=== PATIENT | female | born 1975 | race Caucasian/White ===

== ENCOUNTER → 2024-04-15 17:00 | Outpatient (REF) | payer BC, SELFPAY | LOC: WDC 17:00 | PROVIDERS: ATTENDING PHYSICIAN Obstetrics & Gynecology; FAMILY PHYSICIAN Family Medicine | DX: Z12.31 Encounter for screening mammogram for malignant neoplasm of breast (principal) | CPT/HCPCS: 77063; 77067 ==

== ENCOUNTER 2024-05-02 20:16 | Emergency (ER) | payer BC, SELFPAY ==
[2024-05-02 20:21] VITALS: BP 161/92
--- NOTE | 2024-05-02 20:41 | ED.SKININJ ---
HPI-Injury
General
Chief Complaint: Skin Surface Trauma
Source: patient
Exam Limitations: none
Time Seen by Provider: 05/02/24 20:29
Nursing documentation reviewed up to this point in time: agreed with
History of Present Illness-Injury
Initial Injury comments:
48-year-old female within the past 2 hours with lowering the back [place] of her car and she pulled it down onto the right side of her scalp causing a laceration. There was no loss of consciousness. She denies headache, nausea, change in vision or
neck pain. She is unsure of her last tetanus immunization.
Past History
Past History
ED Past Medical History: None
ED Past Surgical History:
Social History
Tobacco: Non-smoker
Alcohol: Occasional
Personal:
Living: with family
Review of Systems
Review of Systems
Allergies reviewed?: Yes
All Other Systems: ROS reviewed and negative except as documented in HPI and ROS
ABD/GI: Denies nausea
Musculoskeletal: Denies neck pain
Skin: Reports other (Scalp laceration)
Neurological: Reports no symptoms
Phy Exam
Physical Exam
Physical Exam:
GENERAL: No acute distress. A&Ox3.
CONSTITUTIONAL: Afebrile.
EYES: PERRL, conjunctivae normal
ENMT: moist mucus membranes, Pharynx nl
RESPIRATORY: Regular respirations, nonlabored, lungs clear.
CARDIOVASCULAR: Regular rate and rhythm, no murmurs, no rubs.
MUSCULOSKELETAL: C-spine nontender. Moves with ease. Well perfused.
SKIN: Warm, dry, pink. Scalp laceration
PSYCH: Normal mood and affect. Well kept, interactive and appropriate
NEUROLOGIC: Awake, alert and oriented. No focal neurological deficits
Course
Orders/Labs/Results
Orders:
Orders
05/02/24 20:41
Acetaminophen [Tylenol] 1,000 mg PO NOW STA
Tetanus/Diphth/Acelpertussis [Adacel] 0.5 ml IM .ONCE ONE
Vital Signs
Initial and Last Documented VS:
Initial Vital Signs
Temp Pulse Resp BP Pulse Ox
98.5 F 72 18 161/92 99
05/02/24 20:21 05/02/24 20:21 05/02/24 20:21 05/02/24 20:21 05/02/24 20:21
Last Documented Vital Signs
Temp Pulse Resp BP Pulse Ox
98.5 F 72 18 148/78 99
05/02/24 20:21 05/02/24 20:21 05/02/24 20:21 05/02/24 20:53 05/02/24 20:21
Procedures
Laceration Closure
Right Upper Scalp:
Status of Wound: clean
Size of Wound in cm: 2
Description of Wound Edges: sharp
Preparation: cleaned with saline
Revision/Debridement: routine- no revision
Type of Closure: Dermabond-skin glue
MDM/Problems Addressed
Differential Diagnosis Includes:
Scalp laceration, concussion
MDM/Problems Addressed:
48-year-old female within the past 2 hours with lowering the back [place] of her car and she pulled it down onto the right side of her scalp causing a laceration. There was no loss of consciousness. She denies headache, nausea, change in vision or
neck pain. She is unsure of her last tetanus immunization.
Neuro exam is normal, no sign of concussion
Tdap updated
Wound glued with good approximation of wound edges
*Critical Care Note
Total Time (30-74mins, 75-104mins- exclusive of procedures): Not Applicable
ED Attending Note
-
Portions of this chart may have been created with voice recognition software.� Occasional wrong word or��sound alike� substitutions may have occurred due to the inherent limitations of voice recognition software.
Discharge Plan
Departure
Patient Disposition: Home (Routine Discharge)
Date of Disposition: 05/02/24
Time of Disposition: 20:45
Patient with high blood pressure during this ER visit?: No
Condition: Good
Discharge Problem:
Laceration of scalp
Instructions: Laceration Repair With Glue (DC), Minor Head Injury, Adult ED
Prescriptions:
No Action
sertraline 20 MG/ML concentrate
20 mg PO
prenat.vits,annie,xeo-mybo-reife [ Vitamin] 1 TAB tablet
1 tab PO
Activity Restrictions/Additional Instructions:
As we discussed, you may briefly wet the area in the shower, just do not rub it or apply any ointments.
It takes 7 to 10 days for this area to heal
the glue should slough off within the next 2 weeks.
Interventions
Interventions:
*Risk Screen - Suicide Last Done: 05/02/24 20:21
*General Assessment Last Done: 05/02/24 20:21
*Neglect/Abuse Screening Last Done: 05/02/24 20:21
ED- Fall Risk Assessment Last Done: 05/02/24 20:21
*Nursing Disposition Last Done: 05/02/24 20:53
ED-Skin Assessment Last Done: 05/02/24 20:34
Discharge Date and Time
Discharge Date/Time: 05/02/24 21:27
Print Language: URDU
[2024-05-02] MEDS: TYLENOL 1000 MG PO (20:43)
[2024-05-02] MEDS: ADACEL 0.5 ML IM (20:44)
[2024-05-02 20:53] VITALS: BP 148/78
== END 2024-05-02 21:27 | disposition home or self-care (01) ==
LOC: EMR 20:16
PROVIDERS: EMERGENCY PHYSICIAN Emergency Medicine; FAMILY PHYSICIAN Family Medicine
DX: S01.01XA Laceration without foreign body of scalp, initial encounter (principal); W22.8XXA Striking against or struck by other objects, initial encounter; Z23 Encounter for immunization
CPT/HCPCS: 99282; 12001; 90471; 90715

== ENCOUNTER → 2025-02-20 07:33 | Outpatient (REF) | payer BC, SELFPAY | LOC: HWRAD 07:33 | PROVIDERS: ATTENDING PHYSICIAN Nurse Practitioner Family | DX: R10.10 Upper abdominal pain, unspecified (principal) | CPT/HCPCS: 76700 ==

== ENCOUNTER 2025-04-14 06:34 | Day surgery (SDC) | payer BC, SELFPAY ==
[2025-04-03 08:12] LABS: ALT (SGPT) 36 U/L (0-35); AST (SGOT) 27 U/L (14-36); Albumin 3.8 g/dl (3.5-5.0); Alkaline Phosphatase 92 U/L (38-126); Blood Urea Nitrogen 13 mg/dl (7-17); Calcium 9.2 mg/dl (8.4-10.2); Carbon Dioxide 31 mmol/L (22-30); Chloride 104 mmol/L (98-107); Glucose 88 mg/dl (70-99); Potassium 3.8 mmol/L (3.5-5.1); Sodium 140 mmol/L (135-145); Total Protein 6.3 g/dl (6.3-8.2); eGFR > 60.00
[2025-04-14] VITALS (7 sets, daily range): BP systolic 105–178; BP diastolic 78–94; BMI 25.9
--- NOTE | 2025-04-14 09:54 | HP.FOC2 ---
Focused History & Physical
Chief Complaint
HPI:
Chief Complaint: Biliary colic
HPI / Indication for Planned Procedure: This is a 49-year-old female who presents with biliary colic. Will plan for laparoscopic cholecystectomy with cholangiogram.
Relevant Past Medical History: Negative
Relevant Social History: Negative
Relevant Family History: Negative
Relevant Past Surgical History: Positive for (C-sections)
Review of Systems
Review of Pertinent Systems: All Systems Negative
Medication
See Medication form for detailed medications: Yes
Medication List (including Herbals & OTC):
duloxetine 60 mg capsule,delayed release 60 mg PO DAILY 04/07/25
losartan 100 mg tablet 100 mg PO DAILY 04/07/25
Medications Reviewed: Yes
Allergies and Reactions
Patient has Allergies: No
Noted Allergies and Reactions:
Allergy/AdvReac Type Severity Reaction Status Date / Time
No Known Allergies Allergy Verified 04/14/25 09:40
Pertinent Physical Exam
All Other Systems: Negative
Head/Neck: Normal
Diagnosis / Assessment
This is a 49-year-old female who presents with biliary colic.
Plan / Procedure
Will plan for laparoscopic cholecystectomy with cholangiogram.
Anesthesia/Sedation to be done by Anesthesia Provider: Yes
--- NOTE | 2025-04-14 09:55 | W.SUR.PREOP ---
Pre-Operative Surgical Note
-
I have examined this patient prior to the performance of the scheduled procedure.
The patient's condition is unchanged from the time of the current History and
Physical and the patient is able to undergo the scheduled procedure.
[2025-04-14] MEDS: TYLENOL 1000 MG PO (09:56)
[2025-04-14] MEDS: NORMOSOL-R/PLASMALYTE-A 1000 IV (10:00)
[2025-04-14 10:24] LABS: Hematocrit 37.6 % (37.0-47.0); Hemoglobin 13.1 g/dL (12.0-16.0); Mean Corp Hgb Conc. 34.8 g/dL (33.0-37.0); Mean Corpuscular Volume 90.0 fL (81.0-99.0); Platelet Count 265 10^3/uL (130-400); Red Cell Dist. Width 12.1 % (11.5-14.5)
--- NOTE | 2025-04-14 11:31 | W.IMMPOSTOP ---
Surgical Immed Post Op Note
-
Primary Surgeon: Earl Bernstein MD
Assisting Surgeon: None
Pre-op Diagnosis: Biliary colic
Post-op Diagnosis: Same
Procedure Performed: Laparoscopic cholecystectomy with cholangiogram
Anesthesia Type: General
Specimen / Cultures: Gallbladder and contents
Estimated Blood Loss: 3 cc
Complications: None
Operative Findings: Fairly normal-appearing but distended gallbladder. Critical view of safety obtained prior to cholangiogram which demonstrated normal biliary anatomy and no distal filling defects. The duct was ligated with two 5 mm titanium
clips.
--- NOTE | 2025-04-14 11:32 | OR.RPT ---
Operative Report
Operative Report
Patient Name: Denise Soriano
: 1975
Date of Operation: 04/14/2025
Preoperative Diagnosis: Symptomatic Cholelithiasis
Postoperative Diagnosis: Same
Procedure(s):
Laparoscopic Cholecystectomy with Cholangiogram
Surgeon(s):
Dr. Bernstein
Nub Card Tender(s):
ZIYAD Wise
Anesthesia: General
Estimated Blood Loss: 3 cc
Urine Output: None
Drains/Lines/Implants: None
Specimens:
1. Gallbladder and contents
HPI/Surgical Indications:
This is a 49year old female who presents with abdominal pain. Exam, labs and imaging are consistent with symptomatic cholelithiasis. Risks/Benefits/Alternatives were discussed at length, and the patient agreed to proceed with surgery.
Operative Findings: Fairly normal-appearing but distended gallbladder. Critical view of safety obtained prior to cholangiogram which demonstrated normal biliary anatomy and no distal filling defects. The duct was ligated with two 5 mm titanium
clips.
Procedure Description:
The patient was brought to the Operating Room and placed in the supine position. IV antibiotics were infused and sequential compression devices were confirmed to be on. Following uneventful induction of general endotracheal anesthesia, an
orogastric tube was placed. The abdomen was prepped and draped in the usual sterile fashion. The abdomen was entered using an infraumbilical open Izabela technique with a 12 mm trochar. Pneumoperitoneum to 15 mmHg pressure was obtained without
difficulty and we confirmed that no injury had occurred during our entry. The patient was positioned in reverse trendelenberg and rotated with the right side up slightly. Three (3) 5mm trocars were then placed along the right subcostal margin. A
locking grasping forceps was placed on the fundus of the gallbladder where it was then retracted cephalad and to the right. Using appropriate grasping instruments, the peritoneum overlying the triangle of Calot was incised. The cystic
duct/gallbladder junction was identified, dissected circumferentially. The cystic artery was identified medially and was dissected circumferentially. A critical view was obtained. A clip was then placed on the cystic duct/gallbladder junction and
an intraoperative cholangiogram performed using fluoroscopy, which showed good flow of dye into the duodenum. There were no intra- or extrahepatic bile duct filling defects. The biliary anatomy appeared normal. Following completion of the
cholangiogram, the catheter was removed. Two clips were then placed proximally on the cystic duct and the duct divided. Two clips were placed proximally and one distally on the cystic artery, and the artery was divided. Remaining soft tissue
attachments of the gallbladder to the liver bed were then divided using electrocautery. There was some spillage of bile from our ductotomy, but no spillage of stones. The gallbladder bed was inspected and excellent hemostasis was obtained. The
gallbladder was extracted through the 12 mm trocar site using an endocatch bag. The abdomen was again irrigated and excellent hemostasis was assured. All remaining trocars were then removed and the pneumoperitoneum was evacuated. The 12 mm trocar
site was closed using a figure of 8 of 0 PDS. All trocar sites were closed at the skin level using 4-0 Monocryl followed by Dermabond. Overall, the patient tolerated the procedure well and was taken to the Recovery Room postoperatively in stable
condition.
Evgeny was the attending physician and performed the procedure with assistance of the PA above. The assistance of ZIYAD Wise was required due to the complexity of the procedure. During the procedure Rand assisted with port placement, tissue
retraction, and closure of the wound. Evgeny was present for all portions of the case, excluding skin closure.
Earl Bernstein MD
== END 2025-04-14 13:23 | disposition home or self-care (01) ==
LOC: SDS 06:34
PROVIDERS: ATTENDING PHYSICIAN Surgery; FAMILY PHYSICIAN Family Medicine
DX: K80.10 Calculus of gallbladder with chronic cholecystitis without obstruction (principal); K80.20 Calculus of gallbladder without cholecystitis without obstruction
CPT/HCPCS: 47563; 36415; 74300; 76000; 80053; 85027; 88304; A4300

== ENCOUNTER → 2025-07-18 07:46 | Outpatient (REF) | payer BC, SELFPAY | LOC: WDC 07:46 | PROVIDERS: ATTENDING PHYSICIAN Obstetrics & Gynecology; FAMILY PHYSICIAN Family Medicine | DX: Z12.31 Encounter for screening mammogram for malignant neoplasm of breast (principal) | CPT/HCPCS: 77063; 77067 ==

== ENCOUNTER → 2025-08-28 16:59 | Outpatient (REF) | payer BC, SELFPAY | LOC: RAD 16:59 | PROVIDERS: ATTENDING PHYSICIAN Physician Assistant; FAMILY PHYSICIAN Family Medicine | DX: M79.641 Pain in right hand (principal) | CPT/HCPCS: 73130 ==